=== PATIENT | female | born 1990 | race Hispanic/Latino ===

== ENCOUNTER 2017-09-06 14:14 | Emergency (ER) | payer MEDICAID ==
[2017-09-06 15:39] LABS: BILIRUBIN,URINE Small (NEGATIVE); COLOR,URINE Dark Yellow (YELLOW); GLUCOSE, URINE (UA) Negative (NEGATIVE); KETONES,URINE >=80 mg/dL (NEGATIVE); LEUKOCYTE ESTERASE ,URINE Small (NEGATIVE); NITRATE,URINE Negative (NEGATIVE); OCCULT BLOOD,URINE Negative (NEGATIVE); PROTEIN,URINE Trace (NEGATIVE)
[2017-09-06 15:56] LABS: APPEARANCE,URINE SLIGHTLY CLOUDY (CLEAR)
[2017-09-06 16:13] LABS: RAPID GROUP A STREP NEGATIVE (NEGATIVE)
[2017-09-06 16:34] LABS: BACTERIA,URINE Few /HPF (None Seen); RBC,URINE 0-1 /HPF (0-1); SQUAMOUS EPITHELIAL CELL,UR Moderate /LPF (0-2)
[2017-09-06 16:35] LABS: MUCUS,URINE Few LPF (None Seen)
== END 2017-09-06 17:18 | disposition home or self-care (01) ==
LOC: EDH 14:14
DX: O99.513 Diseases of the respiratory system complicating pregnancy, third trimester (principal); O23.23 Infections of urethra in pregnancy, third trimester; J09.X2 Influenza due to identified novel influenza A virus with other respiratory manifestations; Z3A.30 30 weeks gestation of pregnancy; Z90.49 Acquired absence of other specified parts of digestive tract
CPT/HCPCS: 81001; 87804; 87880